=== PATIENT | female | born 1975 | race Caucasian/White ===

== ENCOUNTER → 2024-08-01 | Outpatient (CLI) | payer OTHER ==
[~2024-08-01] MED LIST: ALBU90OI INH; AMOCLA875 PO; AMOX500 PO; CYCL10 PO; HEMOTOB PR; HYDACE5 PO; IBUP400 PO; NAPR500 PO; OXYACE5T PO; PENVK500 PO; PRED20 PO; PROC10 PO; PROM25 PO; RXPROACE PO; TRAM50 PO
== END ==
LOC: LAB SHORT 10:47 → LAB 10:47
DX: R30.0 Dysuria (principal)
CPT/HCPCS: 87086

== ENCOUNTER → 2025-07-19 | Outpatient (CLI) | payer SELFPAY ==
[2025-07-19 14:06] LABS: Source, Urine Clean Catch
[2025-07-19 14:16] LABS: Red Blood Cells, Urine Not Seen /hpf (0-2); White Blood Cells, Urine 0-2 /hpf (0-5)
== END | disposition home or self-care (01) ==
LOC: LAB SHORT 14:03 → LAB 14:03
PROVIDERS: Family Medicine
DX: R30.0 Dysuria (principal)
CPT/HCPCS: 81015